=== PATIENT | female | born 1995 | race Caucasian/White ===

== ENCOUNTER → 2018-06-28 | Outpatient (CLI) | payer BC ==
--- NOTE | 2018-06-29 08:10 | XR ---
EXAMINATION TYPE: XR thoracic spine complete DATE OF EXAM: 06/28/2018 COMPARISON: NONE HISTORY: Pain TECHNIQUE: 2 views submitted. FINDINGS: Alignment is anatomic. There is no compression deformities. Vertebral body height and disc interspa sandi are maintained. IMPRESSION: 1. No acute abnormality.
--- NOTE | 2018-06-29 08:23 | XR ---
EXAMINATION TYPE: XR cervical spine comp DATE OF EXAM: 06/28/2018 COMPARISON: NONE HISTORY: Pain TECHNIQUE: Four views are submitted. FINDINGS: The odontoid is intact. There are no compression deformities. The prevertebral soft tissue structur es are within normal limits. IMPRESSION: 1. No acute process.
== END | disposition home or self-care (01) ==
LOC: RADXRMAIN 15:57
PROVIDERS: ATTEND Family Medicine
DX: M54.2 Cervicalgia (principal); M40.293 Other kyphosis, cervicothoracic region
CPT/HCPCS: 72050; 72072

== ENCOUNTER → 2021-07-17 | Outpatient (CLI) | payer OTHER | END | disposition home or self-care (01) | LOC: LABWHC1 12:05 | PROVIDERS: ATTEND Emergency Medicine | DX: U07.1 COVID-19 (principal) | CPT/HCPCS: 87635 ==

== ENCOUNTER 2022-04-03 06:46 | Day surgery (SDC) | payer OTHER ==
[~2022-04-03 06:46] MED LIST: DEXAMETHASONE SOD PHOSPHATE 4 MG/ML 1 ML VIAL IV ONE; LACTATED RINGERS 1,000 ML IV SCH; LIDOCAINE 1% (10MG/ML) FOR IV START INTRADERMA PRN; MIDAZOLAM 2 MG/2 ML VIAL IV PRN; ONDANSETRON 4 MG/2 ML VIAL IVP ONE; Pre Op ABX Message 1 EACH MISC MISCELLANE ONE
[2022-04-03] MEDS ORDERED: HYDROmorphone 0.5 MG/0.5 ML SYRINGE IVP PRN (07:00)
--- NOTE | 2022-04-03 07:08 | P.HPOB ---
History of Present Illness H&P Date: 04/03/22 Chief Complaint: LILI 2 26 year old G0 presents for LEEP due to LILI 2 and high grade pap smear. Review of Systems All systems: negative Constitutional: Denies chills, Denies fever Eyes: denies blurred vision, denies pain Ears, nose, mouth and throat: Denies headache, Denies sore throat Cardiovascular: Denies chest pain, Denies shortness of breath Respiratory: Denies cough Gastrointestinal: Denies abdominal pain, Denies diarrhea, Denies nausea, Denies vomiting Genitourinary: Denies dysuria, Denies hematuria Musculoskeletal: Denies myalgias Integumentary: Denies pruritus, Denies rash Neurological: Denies numbness, Denies weakness Psychiatric: Denies anxiety, Denies depression Endocrine: Denies fatigue, Denies weight change Past Medical History Past Medical History: No Reported History Additional Past Medical History / Comment(s): abnormal pap smear History of Any Multi-Drug Resistant Organisms: None Reported Past Surgical History: No Surgical Hx Reported Past Anesthesia/Blood Transfusion Reactions: No Reported Reaction Smoking Status: Never smoker Medications and Allergies Home Medications Medication Instructions Recorded Confirmed Type Sertraline [Zoloft] 100 mg PO DAILY 03/30/22 03/30/22 History buPROPion SR [Wellbutrin SR] 150 mg PO DAILY 03/30/22 03/30/22 History lamoTRIgine [LaMICtal] 100 mg PO DAILY 03/30/22 03/30/22 History norgestimate-ethinyl estradioL 1 tablet PO DAILY 03/30/22 03/30/22 History [Tri-Sprintec Tablet] Allergies Allergy/AdvReac Type Severity Reaction Status Date / Time No Known Allergies Allergy Verified 03/30/22 13:13 Exam Osteopathic Statement: *. No significant issues noted on an osteopathic structural exam other than those noted in the History and Physical/Consult. Heart: RRR Lungs: CTAB Abdomen: soft, nontender Extremeties: neg renee's Assessment and Plan (1) LILI II (cervical intraepithelial neoplasia II) Current Visit: Yes Status: Acute Code(s): N87.1 - MODERATE CERVICAL DYSPLASIA SNOMED Code(s): 172731285 Plan: 1. LEEP
[2022-04-03 07:41] VITALS: TEMP 98
[2022-04-03] MEDS ORDERED: fentaNYL (PF) 50 MCG/ML 2 ML AMP ONE (07:58)
[2022-04-03] MEDS ORDERED: LIDOCAINE 2% INJ 20 MG/ML (2 ML VIAL) ONE (07:58)
[2022-04-03] MEDS ORDERED: PROPOFOL 10 MG/ML 20 ML VIAL IV ONE (07:58)
[2022-04-03] MEDS ORDERED: KETOROLAC 15 MG/ML 1 ML VIAL ONE (07:58)
[2022-04-03] MEDS ORDERED: MIDAZOLAM 2 MG/2 ML VIAL ONE (07:58)
[2022-04-03] MEDS ORDERED: FERRIC SUBSULFATE (MONSELS) JAR TOPICAL ONE (08:15)
--- NOTE | 2022-04-03 08:28 | P.OP ---
Date of Procedure: 04/03/22 Preoperative Diagnosis: 1. LILI II Postoperative Diagnosis: 1. LILI II Procedure(s) Performed: Loop electrocautery excision procedure Anesthesia: MAC Surgeon: Sadia Nava Estimated Blood Loss (ml): 2 IV fluids (ml): 300 Urine output (ml): 20 Pathology: other (Cervical cone) Condition: stable Disposition: PACU Description of Procedure: Patient taken the operating room and general anesthesia was obtained without difficulty. She is prepped and draped in normal sterile fashion dorsal lithotomy position, legs placed in the Ky stirrups. Bladder was drained of all urine. A coated bivalve speculum was placed into the vagina and hooked up to suction. 2 cm loop was used to obtain a biopsy of the cervix swept from left to right. I got a full face of the cervix. After this one more pass was made to get a little deeper into the cervix. The ball cautery was used to obtain excellent hemostasis. Monsel's was also placed. All instruments removed from the vagina. Patient tolerated procedure well. Sponge management counts correct 2. She was taken to recovery in stable condition.
[2022-04-03 09:30] VITALS: RESP 20
[2022-04-03 10:00] VITALS: BP 127/85; PULSE 87
== END 2022-04-03 10:12 | disposition home or self-care (01) ==
LOC: OR 06:46
PROVIDERS: ATTEND Obstetrics & Gynecology
DX: N87.1 Moderate cervical dysplasia (principal); F12.90 Cannabis use, unspecified, uncomplicated; Z79.899 Other long term (current) drug therapy; Z79.3 Long term (current) use of hormonal contraceptives
CPT/HCPCS: 57522; 81025; 88307; J2250; J1100; J2405; J3010; J1885; J2704; J2001

== ENCOUNTER → 2022-07-30 | Outpatient (CLI) | payer OTHER | END | disposition home or self-care (01) | LOC: LABMAIN 21:26 | PROVIDERS: ATTEND Student in an Organized Health Care Education/Training Program | DX: Z20.822 Contact with and (suspected) exposure to COVID-19 (principal) | CPT/HCPCS: 87636 ==